=== PATIENT | male | born 1990 | race African-American/Black ===

== ENCOUNTER 2016-11-06 20:06 | Emergency (ER) | payer OTHER ==
[2016-11-06] MEDS ORDERED: NORCO, ANEXSIA 5/325MG TABLET (HYDROcodone/ACETAMINOPHEN) As Ordered ONE (21:09)
[2016-11-06] MEDS ORDERED: LIDOCAINE 2% MDV 20 ML VIAL As Ordered ONE (21:36)
[2016-11-06] MEDS ORDERED: CEPHALEXIN 250 MG CAP As Ordered ONE (21:36)
--- NOTE | 2016-11-06 23:20 | EDDOCDS ---
Physician Documentation [facility] Name: Leny Thakur Age: 26 yrs Sex: Male : 1990 Arrival Date: 11/06/2016 Time: 20:06 Bed TR8 Private MD: Other - Complete Info On Cds Disposition: 11/06/16 23:03 Discharged to Home/Self Care. Impression: Dislocation of proximal interphalangeal joint of right little finger, Open wound of other finger without damage to nail. - Condition is Stable. - Discharge Instructions: Finger Dislocation, Laceration Care, Adult. - Prescriptions for Keflex 500 mg Oral Capsule - take 1 capsule by ORAL route every 6 hours for 10 days; 40 capsule. [place] 5- 325 mg Oral Tablet - take 1 tablet by ORAL route every [address] OBANDO MDD: 4 tabs; 20 tablet. - Medication Reconciliation, Local Pharmacy Hours form. - Follow up: [facility]; When: 2 - 3 days; Reason: Recheck today's complaints, Continuance of care. Follow up: Emergency Department; When: 1 week; Reason: Staple/Suture removal. - Problem is new. - Symptoms have improved. - Notes: USE MEDICATIONS INSTRUCTED, FOLLOW UP WITH [facility], RETURN TO THE ER IF THE SYMPTOMS WORSEN OR BECOME CONCERNING Historical: - Allergies: no known allergies; - Home Meds: 1. none - PMHx: none; - PSHx: none; - Social history: Smoking status: Patient states former smoker of tobacco. No barriers to communication noted, The patient speaks fluent [place]. - Family history: Not pertinent. - : The pt / caregiver states he / she is not on anticoagulants. Home medication list is obtained from the patient. - Exposure Risk Screening:: None identified. Vital Signs: 11/06 20:08 BP 121 / 77; Pulse 88; Resp 18 S; Temp 97.9(O); Pulse Ox 97% on R/A; Weight 89.81 kg / gr2 198 lbs (R); Height 5 ft. 8 in. (172.72 cm) (R); Pain 8/10; 20:08 Body Mass Index 30.11 (89.81 kg, 172.72 cm) gr2 Procedures: 22:23 Joint Reduction: of the PIP of right little finger, using traction, Immobilized with ck7 finger splint, Patient tolerated well. Post reduction film - reveals normal alignment. 22:23 Laceration repair:. ck7 Laceration: 22:23 Wound Repair of 0.5cm ( 0.2in ) full thickness laceration to palmar aspect of proximal ck7 phalanx of right little finger. Linear shaped.. Distal neuro/vascular/tendon intact. Anesthesia: Digital block administered with 2 mls of 2% lidocaine. Wound prep: Extensive cleansing with hibiclenz by provider, Wound explored extensively. Skin closed with 2 x 4-0 Nylon using Running sutures. Dressed with bandaid. Patient tolerated well. MDM: 21:05 Financial registration complete. kf3 21:07 HYDROcodone-acetaminophen 5 mg-325 mg 1 tabs PO once ordered. ck7 21:09 Fingers Ordered. EDMS 21:32 Cephalexin 500 mg PO once ordered. ck7 21:32 Lidocaine 20 mg/mL (2 %) 10 ml Infiltration once; to bedside ordered. ck7 22:23 Fingers Ordered. EDMS Administered Medications: 21:11 Drug: HYDROcodone-acetaminophen 1 tabs [hydrocodone 5 mg-acetaminophen 325 mg tablet (1 cz tabs)] Route: PO; 21:39 Drug: Cephalexin 500 mg [cephalexin 250 mg capsule (2 caps)] Route: PO; cz 21:58 Drug: Lidocaine 10 ml [lidocaine 20 mg/mL (2 %) injection solution (10 mL)] {Note: [facility] medication obtained for provider to administer.} Route: Infiltration; Signatures: Dispatcher [employer] EDMS Ryan Cole RN RN cz Neto Saunders, Reg Reg kf3 Pat Whitehead RN RN rs3 Ean Davis, RPA-C RPA-Cck7 Windy Ayala RN [facility] MTDD
--- NOTE | 2016-11-06 23:20 | EDDOCDS ---
Nurse's Notes [facility] Name: Leny Thakur Age: 26 yrs Sex: Male : 1990 Arrival Date: 11/06/2016 Time: 20:06 Bed TR8 Private MD: Jacinta - Complete Info On Cds Diagnosis: Dislocation of proximal interphalangeal joint of right little finger;Open wound of other finger without damage to nail Presentation: 11/06 20:17 Presenting complaint: Patient states: Right 5 th finger injury playing foot ball. rs3 deformity and laceration to finger. Adult Sepsis Screening: The patient does not have new or worsening altered mentation. Patient's respiratory rate is less than 22. Systolic blood pressure is greater than 100. Patient has a qSOFA score of 0- Negative Sepsis Screen. Suicide/Homicide risk assessment- the patient denies having any suicidal and/or homicidal ideations and does not present with any other emotional, behavioral or mental health complaints. 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 Transition of care: patient was not received from another setting of care. 20:17 Acuity: KAT Level 4 rs3 20:17 Method Of Arrival: Walkin/Carried/Asstd rs3 Triage Assessment: 20:19 General: Appears in no apparent distress. Pain: Location: palmar aspect of distal rs3 phalanx of right little finger, palmar aspect of middle phalanx of right little finger and palmar aspect of proximal phalanx of right little finger. HIV screening NA for this visit Offered previously. Musculoskeletal: Reports Pain is 6 out of 10 on a pain scale. Historical: - Allergies: no known allergies; - Home Meds: 1. none - PMHx: none; - PSHx: none; - Social history: Smoking status: Patient states former smoker of tobacco. No barriers to communication noted, The patient speaks fluent Japanese. - Family history: Not pertinent. - : The pt / caregiver states he / she is not on anticoagulants. Home medication list is obtained from the patient. - Exposure Risk Screening:: None identified. Screenin:12 Screening information is obtained from the patient. Fall risk: No risks identified. cz Assistance ADL's: requires no assistance with activities of daily living. Abuse/DV Screen: The patient / caregiver reports he/she is: not in a situation that causes fear, pain or injury. Nutritional screening: No deficits noted. Advance Directives: Currently, there is no health care proxy. There is no active DNR order. There is no living will. There is no Power of Fish Straightener. Advance directive information has not previously been placed in an [facility] medical record. home support is adequate. Assessment: 21:12 General: alert male with pain to 5th digit right hand laceration to base ofdigit. cz Vital Signs: 20:08 BP 121 / 77; Pulse 88; Resp 18 S; Temp 97.9(O); Pulse Ox 97% on R/A; Weight 89.81 kg gr2 (R); Height 5 ft. 8 in. (172.72 cm) (R); Pain 8/10; 20:08 Body Mass Index 30.11 (89.81 kg, 172.72 cm) gr2 Vitals: 20:08 Log In Time: November 06, 2016 at 20:08. gr2 ED Course: 20:07 Patient visited by Rhonda Wilson. gr2 20:07 Other - Complete Info On Cds is Private Physician. gr2 20:07 Patient moved to Waiting gr2 20:09 Patient visited by Rhonda Wilson. gr2 20:09 Patient moved to Pre RCE gr2 20:19 Triage Initiated rs3 20:20 Patient moved to Triage 3 rs3 20:54 Mar[facility] ef1 20:54 Oniel Cardona DO is Attending Physician. ef1 20:57 Patient name changed from Dondrell\S\M\S\Blaze\S\ to Dondrell\S\[place]\S\Blaze. EDMS 20:57 Ean Davis RPA-C [facility]. ck7 20:57 Oniel Cardona DO is Attending Physician. ck7 21:04 Patient visited by Ean Davis RPA-C. ck7 21:12 Patient moved to TR1 rs6 21:12 The patient / caregiver is instructed regarding the plan of care and ED course. cz 21:12 No IV's were initiated during this patient's visit. No procedures done that require cz assistance. 21:33 Patient moved to PR2 / rs6 21:36 Patient visited by Ean Davis RPA-C. ck7 22:21 Patient visited by Ean Davis RPA-C. ck7 22:53 Patient visited by Ean Davis RPA-C. ck7 23:02 [facility] is Referral Physician. ck7 23:15 Patient moved to [facility] cz Administered Medications: 21:11 Drug: HYDROcodone-acetaminophen 1 tabs [hydrocodone 5 mg-acetaminophen 325 mg tablet (1 cz tabs)] Route: PO; 21:39 Drug: Cephalexin 500 mg [cephalexin 250 mg capsule (2 caps)] Route: PO; cz 21:58 Drug: Lidocaine 10 ml [lidocaine 20 mg/mL (2 %) injection solution (10 mL)] {Note: [facility] medication obtained for provider to administer.} Route: Infiltration; Order Results: There are currently no results for this order. Outcome: 23:03 Discharge ordered by Provider. ck7 23:17 Discharge Assessment: Patient awake, alert and oriented x 3. No cognitive and/or cz functional deficits noted. Patient verbalized understanding of disposition instructions. patient administered narcotics - yes. Pt provided with safe discharge. The following High Risk Discharge criteria are identified: None. Discharged to home ambulatory. Condition: stable. Discharge instructions given to patient, Instructed on discharge instructions, follow up and referral plans. medication usage, Demonstrated understanding of instructions, medications, Pt was receptive of discharge instructions/ teaching. Prescriptions given X 2. No special radiology studies were completed. Property :Personal belongings accompany Pt. 23:19 Patient left the ED. Signatures: Dispatcher [employer] EDMS Ryan Cole RN RN cz Feola, Erica, PA-C PA-C ef1 Pat Whitehead RN RN rs3 Windy Ayala RN RN [facility] Ean Davis RPA-C RPA-Cck7 Rhonda Wilson gr2 Bev Streeter, MARILEE CERTIFIED PROSTHETIST/ORTHOTIST rs6 MTDD
--- NOTE | 2016-11-07 07:40 | REP ---
EXAMINATION OF THE RIGHT FINGERS: At the proximal IP joint of the fifth finger is complete dorsal subluxation or dislocation. Remaining osseous structures visualized are essentially unremarkable. There is no well defined associated fracture. IMPRESSION: Dislocation at the proximal IP joint of the right fifth finger. The dislocation is dorsal. No associated fracture. Unreviewed
--- NOTE | 2016-11-07 07:51 | REP ---
Clinical: Status post reduction. Technique: AP, lateral, oblique views of the right fifth digit. Findings: Satisfactory reduction at the fifth proximal interphalangeal joint and splinting. No obvious acute fracture. Impression: Satisfactory reduction. Liver is Signed by Samson Denson MD 11/07/2016 07:42 A
--- NOTE | 2016-11-09 00:19 | EDDOCDS ---
Nurse's Notes [facility] Name: Leny Thakur Age: 26 yrs Sex: Male : 1990 Arrival Date: 11/06/2016 Time: 20:06 Bed TR8 Private MD: Jacinta - Complete Info On Cds Diagnosis: Dislocation of proximal interphalangeal joint of right little finger;Open wound of other finger without damage to nail Presentation: 11/06 20:17 Presenting complaint: Patient states: Right 5 th finger injury playing foot ball. rs3 deformity and laceration to finger. Adult Sepsis Screening: The patient does not have new or worsening altered mentation. Patient's respiratory rate is less than 22. Systolic blood pressure is greater than 100. Patient has a qSOFA score of 0- Negative Sepsis Screen. Suicide/Homicide risk assessment- the patient denies having any suicidal and/or homicidal ideations and does not present with any other emotional, behavioral or mental health complaints. 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 Transition of care: patient was not received from another setting of care. 20:17 Acuity: KAT Level 4 rs3 20:17 Method Of Arrival: Walkin/Carried/Asstd rs3 Triage Assessment: 20:19 General: Appears in no apparent distress. Pain: Location: palmar aspect of distal rs3 phalanx of right little finger, palmar aspect of middle phalanx of right little finger and palmar aspect of proximal phalanx of right little finger. HIV screening NA for this visit Offered previously. Musculoskeletal: Reports Pain is 6 out of 10 on a pain scale. Historical: - Allergies: no known allergies; - Home Meds: 1. none - PMHx: none; - PSHx: none; - Social history: Smoking status: Patient states former smoker of tobacco. No barriers to communication noted, The patient speaks fluent Thai. - Family history: Not pertinent. - : The pt / caregiver states he / she is not on anticoagulants. Home medication list is obtained from the patient. - Exposure Risk Screening:: None identified. Screenin:12 Screening information is obtained from the patient. Fall risk: No risks identified. cz Assistance ADL's: requires no assistance with activities of daily living. Abuse/DV Screen: The patient / caregiver reports he/she is: not in a situation that causes fear, pain or injury. Nutritional screening: No deficits noted. Advance Directives: Currently, there is no health care proxy. There is no active DNR order. There is no living will. There is no Power of Energy Economist. Advance directive information has not previously been placed in an [facility] medical record. home support is adequate. Assessment: 21:12 General: alert male with pain to 5th digit right hand laceration to base ofdigit. cz Vital Signs: 20:08 BP 121 / 77; Pulse 88; Resp 18 S; Temp 97.9(O); Pulse Ox 97% on R/A; Weight 89.81 kg gr2 (R); Height 5 ft. 8 in. (172.72 cm) (R); Pain 8/10; 20:08 Body Mass Index 30.11 (89.81 kg, 172.72 cm) gr2 Vitals: 20:08 Log In Time: November 06, 2016 at 20:08. gr2 ED Course: 20:07 Patient visited by Rhonda Wilson. gr2 20:07 Other - Complete Info On Cds is Private Physician. gr2 20:07 Patient moved to Waiting gr2 20:09 Patient visited by Rhonda Wilson. gr2 20:09 Patient moved to Pre RCE gr2 20:19 Triage Initiated rs3 20:20 Patient moved to Triage 3 rs3 20:54 Marva L[facility]pez [facility]C [facility] ef1 20:54 Oniel Cardona DO is Attending Physician. ef1 20:57 Patient name changed from Dondrell\S\M\S\Blaze\S\ to Dondrell\S\[place]\S\Blaze. EDMS 20:57 Ean Davis RPA-C is [facility]. ck7 20:57 Oniel Cardona DO is Attending Physician. ck7 21:04 Patient visited by Ean Davis RPA-C. ck7 21:12 Patient moved to TR1 rs6 21:12 The patient / caregiver is instructed regarding the plan of care and ED course. cz 21:12 No IV's were initiated during this patient's visit. No procedures done that require cz assistance. 21:33 Patient moved to PR2 / rs6 21:36 Patient visited by Ean Davis RPA-C. ck7 22:21 Patient visited by Ean Davis RPA-C. ck7 22:53 Patient visited by Ean Davis RPA-C. ck7 23:02 [facility] is Referral Physician. ck7 23:15 Patient moved to 8 cz 23:31 [facility] Payment Agreement was scanned into [employer] and attached to record. hs2 11/07 08:10 Fingers Returned. EDMS 08:10 Fingers Returned. EDMS 17:28 T-Sheet-- Draft Copy was scanned into [employer] and attached to record. klr Administered Medications: 11/06 21:11 Drug: HYDROcodone-acetaminophen 1 tabs [hydrocodone 5 mg-acetaminophen 325 mg tablet (1 cz tabs)] Route: PO; 21:39 Drug: Cephalexin 500 mg [cephalexin 250 mg capsule (2 caps)] Route: PO; cz 21:58 Drug: Lidocaine 10 ml [lidocaine 20 mg/mL (2 %) injection solution (10 mL)] {Note: [facility] medication obtained for provider to administer.} Route: Infiltration; Order Results: Radiology Order: Fingers Test: Fingers REASON FOR EXAMINATION: Deformity/Swelling; EXAMINATION OF THE RIGHT FINGERS:; ; At the proximal IP joint of the fifth finger is complete dorsal subluxation or; dislocation.; ; Remaining osseous structures visualized are essentially unremarkable. There is; no well defined associated fracture.; ; IMPRESSION:; Dislocation at the proximal IP joint of the right fifth finger. The dislocation; is dorsal. No associated fracture.; ; ; ; Unreviewed; Radiology Order: Fingers Test: Fingers REASON FOR EXAMINATION: POST REDUCTION; Clinical: Status post reduction.; ; Technique: AP, lateral, oblique views of the right fifth digit.; ; Findings:; Satisfactory reduction at the fifth proximal interphalangeal joint and splinting.; No obvious acute fracture.; ; Impression:; Satisfactory reduction. Liver is; ; ; Signed by; Samson Denson MD 11/07/2016 07:42 A; Outcome: 23:03 Discharge ordered by Provider. ck7 23:17 Discharge Assessment: Patient awake, alert and oriented x 3. No cognitive and/or cz functional deficits noted. Patient verbalized understanding of disposition instructions. patient administered narcotics - yes. Pt provided with safe discharge. The following High Risk Discharge criteria are identified: None. Discharged to home ambulatory. Condition: stable. Discharge instructions given to patient, Instructed on discharge instructions, follow up and referral plans. medication usage, Demonstrated understanding of instructions, medications, Pt was receptive of discharge instructions/ teaching. Prescriptions given X 2. No special radiology studies were completed. Property :Personal belongings accompany Pt. 23:19 Patient left the ED. cz Signatures: Dispatcher [employer] EDMS Ryan Cole, RN RN cz Marva López, PA-C PA-C ef1 Pat Whitehead RN RN rs3 Windy AyalaRN RN [facility] Ean Davis, RPA-C RPA-Cck7 Rhonda Wilson gr2 Bev Streeter, CHANGE RELEASE MANAGER CHANGE RELEASE MANAGER rs6 Bree Sánchez, Reg Reg hs2 Rica Ocasio Chart Complete MTDD
--- NOTE | 2016-11-09 00:19 | EDDOCDS ---
Physician Documentation [facility] Name: Leny Thakur Age: 26 yrs Sex: Male : 1990 Arrival Date: 11/06/2016 Time: 20:06 Bed TR8 Private MD: Other - Complete Info On Cds Disposition: 11/06/16 23:03 Discharged to Home/Self Care. Impression: Dislocation of proximal interphalangeal joint of right little finger, Open wound of other finger without damage to nail. - Condition is Stable. - Discharge Instructions: Finger Dislocation, Laceration Care, Adult. - Prescriptions for Keflex 500 mg Oral Capsule - take 1 capsule by ORAL route every 6 hours for 10 days; 40 capsule. [place] 5- 325 mg Oral Tablet - take 1 tablet by ORAL route every [address] OBANDO MDD: 4 tabs; 20 tablet. - Medication Reconciliation, Local Pharmacy Hours form. - Follow up: [facility]; When: 2 - 3 days; Reason: Recheck today's complaints, Continuance of care. Follow up: Emergency Department; When: 1 week; Reason: Staple/Suture removal. - Problem is new. - Symptoms have improved. - Notes: USE MEDICATIONS INSTRUCTED, FOLLOW UP WITH [facility], RETURN TO THE ER IF THE SYMPTOMS WORSEN OR BECOME CONCERNING Historical: - Allergies: no known allergies; - Home Meds: 1. none - PMHx: none; - PSHx: none; - Social history: Smoking status: Patient states former smoker of tobacco. No barriers to communication noted, The patient speaks fluent [place]raini. - Family history: Not pertinent. - : The pt / caregiver states he / she is not on anticoagulants. Home medication list is obtained from the patient. - Exposure Risk Screening:: None identified. Vital Signs: 11/06 20:08 BP 121 / 77; Pulse 88; Resp 18 S; Temp 97.9(O); Pulse Ox 97% on R/A; Weight 89.81 kg / gr2 198 lbs (R); Height 5 ft. 8 in. (172.72 cm) (R); Pain 8/10; 20:08 Body Mass Index 30.11 (89.81 kg, 172.72 cm) gr2 Procedures: 22:23 Joint Reduction: of the PIP of right little finger, using traction, Immobilized with ck7 finger splint, Patient tolerated well. Post reduction film - reveals normal alignment. 22:23 Laceration repair:. ck7 Laceration: 22:23 Wound Repair of 0.5cm ( 0.2in ) full thickness laceration to palmar aspect of proximal ck7 phalanx of right little finger. Linear shaped.. Distal neuro/vascular/tendon intact. Anesthesia: Digital block administered with 2 mls of 2% lidocaine. Wound prep: Extensive cleansing with hibiclenz by provider, Wound explored extensively. Skin closed with 2 x 4-0 Nylon using Running sutures. Dressed with bandaid. Patient tolerated well. MDM: 21:05 Financial registration complete. kf3 21:07 HYDROcodone-acetaminophen 5 mg-325 mg 1 tabs PO once ordered. ck7 21:09 Fingers Ordered. EDMS 21:32 Cephalexin 500 mg PO once ordered. ck7 21:32 Lidocaine 20 mg/mL (2 %) 10 ml Infiltration once; to bedside ordered. ck7 22:23 Fingers Ordered. EDMS 23:31 [facility] Payment Agreement was scanned into [employer] and attached to record. 2 11/07 17:28 T-Sheet-- Draft Copy was scanned into [employer] and attached to record. klr Administered Medications: 11/06 21:11 Drug: HYDROcodone-acetaminophen 1 tabs [hydrocodone 5 mg-acetaminophen 325 mg tablet (1 cz tabs)] Route: PO; 21:39 Drug: Cephalexin 500 mg [cephalexin 250 mg capsule (2 caps)] Route: PO; cz 21:58 Drug: Lidocaine 10 ml [lidocaine 20 mg/mL (2 %) injection solution (10 mL)] {Note: [facility] medication obtained for provider to administer.} Route: Infiltration; Signatures: Dispatcher [employer] EDMS Ryan Cole RN RN cz Neto Saunders, Reg Reg kf3 Pat Whitehead RN RN rs3 Ean Davis RPA-C RPA-Cck7 Bree Sánchez, Reg Reg hs2 Rica Ocasio klWindy Thakur RN [facility] The chart was reviewed and I authenticate all verbal orders and agree with the evaluation and treatment provided.Attachments: 23:31 [facility] Payment Agreement 2 11/07 17:28 T-Sheet-- Draft Copy klr Chart Complete MTDD
--- NOTE | 2016-11-09 00:19 | EDDOCDS ---
Physician Documentation [facility] Name: Leny Thakur Age: 26 yrs Sex: Male : 1990 Arrival Date: 11/06/2016 Time: 20:06 Bed TR8 Private MD: Other - Complete Info On Cds Disposition: 11/06/16 23:03 Discharged to Home/Self Care. Impression: Dislocation of proximal interphalangeal joint of right little finger, Open wound of other finger without damage to nail. - Condition is Stable. - Discharge Instructions: Finger Dislocation, Laceration Care, Adult. - Prescriptions for Keflex 500 mg Oral Capsule - take 1 capsule by ORAL route every 6 hours for 10 days; 40 capsule. [place] 5- 325 mg Oral Tablet - take 1 tablet by ORAL route every [address] OBANDO MDD: 4 tabs; 20 tablet. - Medication Reconciliation, Local Pharmacy Hours form. - Follow up: [facility]; When: 2 - 3 days; Reason: Recheck today's complaints, Continuance of care. Follow up: Emergency Department; When: 1 week; Reason: Staple/Suture removal. - Problem is new. - Symptoms have improved. - Notes: USE MEDICATIONS INSTRUCTED, FOLLOW UP WITH [facility], RETURN TO THE ER IF THE SYMPTOMS WORSEN OR BECOME CONCERNING Historical: - Allergies: no known allergies; - Home Meds: 1. none - PMHx: none; - PSHx: none; - Social history: Smoking status: Patient states former smoker of tobacco. No barriers to communication noted, The patient speaks fluent Faroese. - Family history: Not pertinent. - : The pt / caregiver states he / she is not on anticoagulants. Home medication list is obtained from the patient. - Exposure Risk Screening:: None identified. Vital Signs: 11/06 20:08 BP 121 / 77; Pulse 88; Resp 18 S; Temp 97.9(O); Pulse Ox 97% on R/A; Weight 89.81 kg / gr2 198 lbs (R); Height 5 ft. 8 in. (172.72 cm) (R); Pain 8/10; 20:08 Body Mass Index 30.11 (89.81 kg, 172.72 cm) gr2 Procedures: 22:23 Joint Reduction: of the PIP of right little finger, using traction, Immobilized with ck7 finger splint, Patient tolerated well. Post reduction film - reveals normal alignment. 22:23 Laceration repair:. ck7 Laceration: 22:23 Wound Repair of 0.5cm ( 0.2in ) full thickness laceration to palmar aspect of proximal ck7 phalanx of right little finger. Linear shaped.. Distal neuro/vascular/tendon intact. Anesthesia: Digital block administered with 2 mls of 2% lidocaine. Wound prep: Extensive cleansing with hibiclenz by provider, Wound explored extensively. Skin closed with 2 x 4-0 Nylon using Running sutures. Dressed with bandaid. Patient tolerated well. MDM: 21:05 Financial registration complete. kf3 21:07 HYDROcodone-acetaminophen 5 mg-325 mg 1 tabs PO once ordered. ck7 21:09 Fingers Ordered. EDMS 21:32 Cephalexin 500 mg PO once ordered. ck7 21:32 Lidocaine 20 mg/mL (2 %) 10 ml Infiltration once; to bedside ordered. ck7 22:23 Fingers Ordered. EDMS 23:31 [facility] Payment Agreement was scanned into [employer] and attached to record. 2 11/07 17:28 T-Sheet-- Draft Copy was scanned into [employer] and attached to record. klr Administered Medications: 11/06 21:11 Drug: HYDROcodone-acetaminophen 1 tabs [hydrocodone 5 mg-acetaminophen 325 mg tablet (1 cz tabs)] Route: PO; 21:39 Drug: Cephalexin 500 mg [cephalexin 250 mg capsule (2 caps)] Route: PO; cz 21:58 Drug: Lidocaine 10 ml [lidocaine 20 mg/mL (2 %) injection solution (10 mL)] {Note: [facility] medication obtained for provider to administer.} Route: Infiltration; Signatures: Dispatcher [employer] EDMS Ryan Cole RN RN cz Neto Saunders, Reg Reg kf3 Pat Whitehead RN RN rs3 Ean Davis RPA-C RPA-[id number] Bree Sánchez, Reg Reg hs2 Rica Ocaiso klWindy Thakur RN [facility] The chart was reviewed and I authenticate all verbal orders and agree with the evaluation and treatment provided.Attachments: 23:31 [facility] Payment Agreement 2 11/07 17:28 T-Sheet-- Draft Copy klr Chart Complete MTDD
== END 2016-11-06 23:19 | disposition home or self-care (01) ==
LOC: M ED 20:06
DX: S63.286A Dislocation of proximal interphalangeal joint of right little finger, initial encounter (principal); S61.216A Laceration without foreign body of right little finger without damage to nail, initial encounter; X58.XXXA Exposure to other specified factors, initial encounter; Y92.830 Public park as the place of occurrence of the external cause; Y93.67 Activity, basketball; Y99.8 Other external cause status; Z87.891 Personal history of nicotine dependence

== ENCOUNTER 2016-11-11 06:34 | Emergency (ER) | payer OTHER ==
[2016-11-11] MEDS ORDERED: diphenhydrAMINE INJ 50MG/ML VIAL (J1200) IV STA (07:10)
[2016-11-11] MEDS ORDERED: methylPREDNISolone INJ 125 MG/2 ML VIAL (J2930) IV ONE (07:15)
[2016-11-11] MEDS ORDERED: FAMOTIDINE INJ 20MG/2ML VIAL (S0028) IVP ONE (07:15)
[2016-11-11] MEDS ORDERED: NORC5TAB PO (08:10)
[2016-11-11] MEDS ORDERED: BENA25TA9 PO (08:51)
[2016-11-11] MEDS ORDERED: PRED20TA PO (08:55)
[2016-11-11] MEDS ORDERED: PEPC1TAB4 PO (08:58)
[2016-11-11 09:24] VITALS: BP 125/81
== END 2016-11-11 09:27 | disposition home or self-care (01) ==
LOC: M ED 06:34
DX: T78.40XA Allergy, unspecified, initial encounter (principal); X58.XXXA Exposure to other specified factors, initial encounter; Y92.9 Unspecified place or not applicable; Y93.9 Activity, unspecified; Y99.9 Unspecified external cause status
CPT/HCPCS: 96374; 96375; 99282; J1200; J2930

== ENCOUNTER 2017-02-22 19:48 | Emergency (ER) | payer OTHER ==
[~2017-02-22] VITALS: Ht 170.2 cm; Wt 87.1 kg
[~2017-02-22 19:48] MED LIST: BENA25TA9 PO; NORC1TAB4 PO; PEPC1TAB4 PO; PRED20TA PO
[2017-02-22 20:29] LABS: BASO # 0.1 K/mm3 (0.0-0.2); BASO % 0.8 % (0.0-1.0); EOS # 0.2 K/mm3 (0.0-0.50); LARGE UNSTAINED CELL # 0.2 K/mm3 (0.0-0.4); LARGE UNSTAINED CELL % 2.1 % (0.0-4.0); LYMPH # 2.8 K/mm3 (1.5-6.5); LYMPH % 34.3 % (24.0-44.0); MEAN CORPUSCULAR HEMOGLOBIN 29.3 pg (27.0-33.0); MEAN CORPUSCULAR HGB CONC 34.2 g/dl (32.0-36.5); MEAN CORPUSCULAR VOLUME 85.5 fl (80.0-96.0); MONO # 0.4 K/mm3 (0.0-0.8); MONO % 5.7 % (0.0-5.0); NEUTROPHILS # 4.2 K/mm3 (1.8-7.7); NEUTROPHILS % 54.2 % (36.0-66.0); PLATELET COUNT, AUTOMATED 261 k/mm3 (150-450); RED CELL DISTRIBUTION WIDTH 13.6 % (11.5-14.5); WHITE BLOOD COUNT 7.7 K/mm3 (4.0-10.0)
[2017-02-22 20:56] LABS: ALBUMIN 3.4 GM/DL (3.2-5.2); ALBUMIN/GLOBULIN RATIO 0.89 (1.00-1.93); ALKALINE PHOSPHATASE 75 U/L (45-117); ALT/SGPT 27 U/L (12-78); ANION GAP 7 MEQ/L (8-16); AST/SGOT 22 U/L (15-37); BILIRUBIN,DIRECT < 0.1 MG/DL (0.0-0.2); BILIRUBIN,TOTAL 0.2 MG/DL (0.2-1.0); BLOOD UREA NITROGEN 15 MG/DL (7-18); CALCIUM LEVEL 8.6 MG/DL (8.5-10.1); CARBON DIOXIDE LEVEL 28 MEQ/L (21-32); CHLORIDE LEVEL 105 MEQ/L (98-107); CREATININE FOR GFR 1.14 MG/DL (0.70-1.30); GLOMERULAR FILTRATION RATE > 60.0 (>60); GLUCOSE, FASTING 152 MG/DL (70-105); POTASSIUM SERUM 3.4 MEQ/L (3.5-5.1); SODIUM LEVEL 140 MEQ/L (136-145); TOTAL PROTEIN 7.2 GM/DL (6.4-8.2)
--- NOTE | 2017-02-22 21:00 | REPUSA ---
CLINICAL HISTORY: Chest pain. COMMENTS: PA and lateral views of chest reveal no evidence of active pleural or pulmonary parenchymal abnormali ty. The cardiac silhouette is within limits of normal. The mediastinum and pulmonary vessels appear n ormal. The bony structures are unremarkable. IMPRESSION: No evidence of acute pulmonary pathology.
[2017-02-22] MEDS ORDERED: POTASSIUM CHLORIDE 10 MEQ SR TABLET PO ONE (21:30)
[2017-02-23 00:26] VITALS: BP 117/63
--- NOTE | 2017-02-23 08:19 | ECGEPIP ---
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
--- NOTE | 2017-02-23 08:23 | ECGEPIP ---
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
== END 2017-02-23 00:22 | disposition home or self-care (01) ==
LOC: M ED 21:35
DX: R07.9 Chest pain, unspecified (principal); F17.200 Nicotine dependence, unspecified, uncomplicated

== ENCOUNTER 2017-02-25 18:05 | Emergency (ER) | payer OTHER ==
[~2017-02-25] VITALS: Ht 170.2 cm; Wt 87.5 kg
[2017-02-25] MEDS ORDERED: INDO25CA PO (20:17)
[2017-02-25 20:25] VITALS: BP 128/72
--- NOTE | 2017-02-26 09:27 | ECGEPIP ---
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
== END 2017-02-25 20:27 | disposition home or self-care (01) ==
LOC: M ED 19:16
DX: R07.89 Other chest pain (principal); R00.1 Bradycardia, unspecified

== ENCOUNTER 2017-02-25 23:56 | Emergency (ER) | payer OTHER ==
[~2017-02-25] VITALS: Ht 170.2 cm; Wt 87.2 kg
[~2017-02-25 23:56] MED LIST changes: +INDO25CA PO
[2017-02-26 03:55] VITALS: BP 133/84
--- NOTE | 2017-02-26 09:30 | ECGEPIP ---
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
== END 2017-02-26 04:08 | disposition home or self-care (01) ==
LOC: M ED 02-26 00:27
DX: F41.9 Anxiety disorder, unspecified (principal); F17.200 Nicotine dependence, unspecified, uncomplicated

== ENCOUNTER 2017-03-03 06:14 | Emergency (ER) | payer OTHER ==
[~2017-03-03] VITALS: Ht 170.2 cm; Wt 87.0 kg
[~2017-03-03 06:14] MED LIST changes: +BENA25TA10 PO; -BENA25TA9 PO
[2017-03-03] MEDS ORDERED: FAMOTIDINE IV BAG 20 MG in APPROPRIATE DILUENT 1 EA IV ONE (07:00)
[2017-03-03] MEDS ORDERED: GI COCKTAIL 50ML BTL(HYOSCYAMINE/MAALOX/LIDOCAINE VISCOUS)(1:3:1) PO ONE (07:00)
[2017-03-03 07:04] LABS: BASO % 0.4 % (0.0-1.0); EOS # 0.3 K/mm3 (0.0-0.50); LARGE UNSTAINED CELL # 0.2 K/mm3 (0.0-0.4); LARGE UNSTAINED CELL % 1.9 % (0.0-4.0); LYMPH # 3.6 K/mm3 (1.5-6.5); LYMPH % 34.2 % (24.0-44.0); MEAN CORPUSCULAR HEMOGLOBIN 28.8 pg (27.0-33.0); MEAN CORPUSCULAR HGB CONC 33.6 g/dl (32.0-36.5); MEAN CORPUSCULAR VOLUME 85.7 fl (80.0-96.0); MONO # 0.6 K/mm3 (0.0-0.8); MONO % 5.8 % (0.0-5.0); NEUTROPHILS # 5.5 K/mm3 (1.8-7.7); NEUTROPHILS % 54.6 % (36.0-66.0); PLATELET COUNT, AUTOMATED 269 k/mm3 (150-450); RED CELL DISTRIBUTION WIDTH 13.5 % (11.5-14.5); WHITE BLOOD COUNT 10.1 K/mm3 (4.0-10.0)
[2017-03-03 07:20] LABS: ALBUMIN/GLOBULIN RATIO 1.11 (1.00-1.93); ALKALINE PHOSPHATASE 79 U/L (45-117); ALT/SGPT 25 U/L (12-78); AMYLASE 105 U/L (25-115); ANION GAP 7 MEQ/L (8-16); AST/SGOT 18 U/L (15-37); BILIRUBIN,DIRECT < 0.1 MG/DL (0.0-0.2); BILIRUBIN,TOTAL 0.2 MG/DL (0.2-1.0); BLOOD UREA NITROGEN 13 MG/DL (7-18); CARBON DIOXIDE LEVEL 28 MEQ/L (21-32); CHLORIDE LEVEL 104 MEQ/L (98-107); CREATININE FOR GFR 1.22 MG/DL (0.70-1.30); GLOMERULAR FILTRATION RATE > 60.0 (>60); GLUCOSE, FASTING 91 MG/DL (70-105); POTASSIUM SERUM 4.1 MEQ/L (3.5-5.1); SODIUM LEVEL 139 MEQ/L (136-145); TOTAL PROTEIN 7.6 GM/DL (6.4-8.2)
--- NOTE | 2017-03-03 07:34 | REP ---
Clinical: Acute right upper quadrant abdominal pain. Technique: Villalobos scale ultrasound using curved array transducer. Findings: The liver and pancreas are normal in contour, size, and echogenicity without focal hepatic or pancreatic lesions identified. The gallbladder is normal without gallstones, wall thickening or pericholecystic fluid. No biliary ductal dilatation is appreciated, and the common bile duct measures 2.7 mm diameter. The right kidney is normal in reniform shape without hydronephrosis and measures 10.0 x 4.4 x 4.8 cm. No ascites. Visualized portions of the abdominal aorta normal. Impression: Normal right upper quadrant and gallbladder abdominal ultrasound. Signed by Samson Denson MD 03/03/2017 07:24 A
[2017-03-03] MEDS ORDERED: PROT1TAB2 PO (07:36)
[2017-03-03] MEDS ORDERED: KETOROLAC 30 MG/ML VIAL (J1885) IV ONE (07:45)
[2017-03-03] MEDS ORDERED: PANTOPRAZOLE 40MG TAB (PROTONIX) PO ONE (07:45)
[2017-03-03 08:14] VITALS: BP 128/68
[2017-03-04] MEDS ORDERED: ELIQ5TAB PO (13:15)
== END 2017-03-03 08:19 | disposition home or self-care (01) ==
LOC: M ED 07:24
DX: K29.70 Gastritis, unspecified, without bleeding (principal); R11.0 Nausea; R10.13 Epigastric pain
CPT/HCPCS: 76705; 80048; 80076; 82150; 83690; 85025; 96374; 96375; 99283; J1885

== ENCOUNTER 2017-03-04 08:27 | Emergency (ER) | payer OTHER ==
[~2017-03-04] VITALS: Ht 170.2 cm; Wt 88.0 kg
[~2017-03-04 08:27] MED LIST changes: +PROT1TAB2 PO
[2017-03-04] MEDS ORDERED: ISOVUE-370 76% 100ML VIAL (Q9967) As Ordered ONE (09:19)
--- NOTE | 2017-03-04 10:12 | REP ---
CT of the chest, CT pulmonary angiography: Studies performed with intravenous contrast. There are no comparison CT studies. There are no emboli in the pulmonary trunk or central pulmonary arteries. I suspect there is a small embolus in the artery supplying the apical segment of the right upper lobe on image 51. No other pulmonary emboli are identified. There are no infiltrates, effusions or masses. There is no mediastinal or hilar adenopathy. No axillary adenopathy. Thoracic aorta is unremarkable. Cardiac size is normal. The visualized upper abdominal contents are unremarkable. Impression: I suspect a small embolus in the pulmonary artery supplying the apical segment of the right upper lobe. There are no other pulmonary emboli. Otherwise, negative CT study of the chest. Signed by Alfonzo Cruz MD 03/04/2017 10:03 A
[2017-03-04 10:57] LABS: ANION GAP 5 MEQ/L (8-16); BLOOD UREA NITROGEN 13 MG/DL (7-18); CALCIUM LEVEL 8.9 MG/DL (8.5-10.1); CARBON DIOXIDE LEVEL 31 MEQ/L (21-32); CHLORIDE LEVEL 103 MEQ/L (98-107); CREATININE FOR GFR 1.27 MG/DL (0.70-1.30); GLOMERULAR FILTRATION RATE > 60.0 (>60); GLUCOSE, FASTING 96 MG/DL (70-105); POTASSIUM SERUM 3.7 MEQ/L (3.5-5.1); SODIUM LEVEL 139 MEQ/L (136-145)
[2017-03-04 11:04] LABS: INR 0.96
--- NOTE | 2017-03-04 11:07 | REP ---
Bilateral lower extremity Duplex Doppler venous ultrasound: Real time compression and duplex Doppler interrogation of the bilateral lower extremity deep venous system is performed. Bilaterally, the common femoral, superficial femoral and popliteal veins are fully compressible with transducer pressure and demonstrate normal spontaneous and phasic flow, without evidence of deep venous thrombosis. Impression: No evidence of deep venous thrombosis of the bilateral lower extremity femoral popliteal venous system. Signed by Alfonzo Villalobos MD 03/04/2017 10:58 A
[2017-03-04 11:23] LABS: BASO % 0.5 % (0.0-1.0); EOS # 0.2 K/mm3 (0.0-0.50); EOS % 1.9 % (0.0-3.0); LARGE UNSTAINED CELL # 0.2 K/mm3 (0.0-0.4); LARGE UNSTAINED CELL % 2.2 % (0.0-4.0); LYMPH # 2.8 K/mm3 (1.5-6.5); LYMPH % 27.4 % (24.0-44.0); MEAN CORPUSCULAR HEMOGLOBIN 29.3 pg (27.0-33.0); MEAN CORPUSCULAR HGB CONC 34.3 g/dl (32.0-36.5); MEAN CORPUSCULAR VOLUME 85.5 fl (80.0-96.0); MONO # 0.6 K/mm3 (0.0-0.8); MONO % 6.6 % (0.0-5.0); NEUTROPHILS # 5.7 K/mm3 (1.8-7.7); NEUTROPHILS % 61.4 % (36.0-66.0); PLATELET COUNT, AUTOMATED 224 k/mm3 (150-450); RED CELL DISTRIBUTION WIDTH 13.2 % (11.5-14.5); WHITE BLOOD COUNT 9.3 K/mm3 (4.0-10.0)
[2017-03-04] MEDS ORDERED: APIXABAN 5 MG TAB (ELIQUIS) PO ONE (13:15)
[2017-03-04] MEDS ORDERED: ELIQ5TAB PO (13:15)
[2017-03-04 15:41] VITALS: BP 119/64
--- NOTE | 2017-03-04 15:57 | ER ---
DATE OF CONSULTATION: 03/04/2017 CONSULTATION REQUESTED BY: Oniel Cardona DO, emergency room (ER). REASON FOR CONSULTATION: Medical management. CHIEF COMPLAINT: Chest pain. HISTORY OF PRESENT ILLNESS: Mr. Thakur is a 26-year-old male with no past medical history who presented to the ER due to experiencing chest discomfort and pain. The patient expressed that his symptoms started a week ago when he was at home watching TV, that the sharp pain suddenly started. Patient expressed that the pain was 7/10 with no radiation and mostly located on the mid and left anterior side of the chest under the breast tissue. Patient had been seen by the ER multiple times over the past week and his last visit was yesterday when he was diagnosed with epigastric abdominal pain and was discharged with Protonix. However, patient expressed that it did not help his pain. Patient returned again today due to continuation of the pain. Patient denies fever, chills, night sweats. Patient expressed that the chest pain and discomfort increases with taking deep breaths and activities. Patient denies actively being out of breath , however patient expressed that when the pain increases he becomes short of breath, also he feels palpitations when his pain increases, however patient denies racing or skipping heartbeat or continuation of palpitations. Patient denies coughing. Patient denies seizure-type activities or syncope. Patient also denies rash or lesions or experiencing a tick bite. Patient also denies noticing an increase in the size of his testes or pain in the scrotum as well as lumps or bumps in his neck or axillary area. ALLERGIES: No known drug allergies. PAST MEDICAL HISTORY: None. PAST SURGICAL HISTORY: None. HOME MEDICATIONS: - Protonix 40 mg daily SOCIAL HISTORY: Patient expressed that at this time he has quit smoking two years ago, however before that patient smoked about a year, about two cigarettes a day. Patient occasionally drinks alcoholic beverages. Patient denies illicit drug use. Patient works for [employer]. Patient has one dog. At this time, patient lives with his and his daughter who is healthy. FAMILY HISTORY: Patient has a daughter who is healthy. Patient has four brothers and three sisters who are healthy. Patient's father and mother are alive and have no medical issues. Patient also expressed that neither he nor any of his family members have been diagnosed with sickle cell or having the sickle cell trait. REVIEW OF SYSTEMS: GENERAL: Patient denies fever, chills, night sweats, weight loss, weight gain. HEENT: Patient denies acute vision or hearing changes, however patient expressed that when he had episode of dyspnea he had one or two episodes of lightheadedness, however patient denies syncope. Patient denies problem with chewing food or sinusitis. NECK: Patient denies lumps, bumps, or decreased range of motion of his neck. HEART: Patient has chest pain which is mostly on the mid and the left lateral sternum under his left breast tissue. Patient expressed that the pain is 5-6 out of 10, stationary, sharp pain, which increases with activities and movement and taking deep breaths. Patient denies actively noticing racing or skipping heartbeat or palpitations, however patient expressed that when his pain increases he feels palpitations. LUNGS: Patient denies actively being out of breath, however increase of pain causes him to be out of breath. However patient denies cough or wheezing. ABDOMEN: Patient denies abdominal pain, nausea, vomiting, diarrhea, constipation, melena, hematochezia, or hemoptysis. NEUROLOGIC: Patient denies history of transient ischemic attack (TIA), seizure or seizure-type activities. PHYSICAL EXAMINATION: VITAL SIGNS: Temperature 98.1, pulse 89, respiratory rate 18, blood pressure 160/82, pulse oximetry 100% on room air. GENERAL APPEARANCE: Patient was lying in bed, in no acute distress. Patient was awake, alert, and oriented to time, place, and person. HEENT: Normocephalic, atraumatic. Pupils are equal and reactive to light. Oral mucous is moist. NECK: Soft, supple. No lymphadenopathy. No thyromegaly. No jugular venous distention (JVD). HEART: Regular rate and rhythm, normal S1, S2. ABDOMEN: Soft, nontender. Positive bowel sounds in all quadrants. LUNGS: Clear breath sounds bilaterally, good air movement. EXTREMITIES: No lumps or bumps were noticed in the axillary area bilaterally. No lower extremity edema. +2 pulses in both lower extremities. Patient has normal range of motion in both upper and lower extremities. NEUROLOGIC: Cranial nerves II-XII were intact. No focal deficiencies. : testis are in normal size and no mass or lumps was noticed. LABORATORY DATA: White blood cells 9.3, red blood cells 4.54, hemoglobin 13.3, hematocrit 38.8, MCV 85.5, MCH 29.3, MCHC 34.3, RDW 13.2, platelet count 224, neutrophil percentage 61.4, lymphocyte percentage 27.4, monocyte percentage 6.6, eosinophil percentage 1.9, basophil percentage 0.9, leukocyte percentage 2.2, PT 12.9, INR 0.96, APTT 28.1. Sodium 139, potassium 3.7, chloride 103, carbon dioxide 31, anion gap 5, BUN 13, creatinine 1.27, glomerular filtration rate more than 60, fasting glucose 96, calcium 8.9. IMAGING: Ultrasound of the lower extremities shows no evidence of a deep venous thrombosis (DVT) of the bilateral lower extremities femoral popliteal venous system. CT angio of the chest shows a small embolus in the pulmonary artery supplying the apical segment of the right upper lobe. There are no other pulmonary embolisms and otherwise patient has negative CT study. ASSESSMENT AND PLAN: Atypical chest pain. This is possibly secondary to pulmonary embolus (PE). Patient has been started on Eliquis by emergency room (ER), which we agree with this plan. Also, a hypercoagulable workup has been ordered and the result is pending at this time. Patient does not have a primary care provider (PCP) at this time due to his insurance ([employer]). Patient is requested to followup with the [facility]. We have tried to call the [facility] today, however no response. We provided a number for [facility] ([phone]) to the patient and requested that patient make an appointment as soon as possible for followup. Also, on the previous visit patient had an EKG done which did not show any new pathology. Patient also had cardiac markers done on previous visits (02/22/2017 ) which were negative. On the physical exam, no abnormal mass was noticed on the testes, also no lumps or bumps were noticed in the axillary area as well as neck. After DC from ER, patient's needs to followup with the primary care provider ( PCP) as soon as possible. My preceptor for this patient encounter was Dr. Luciano Watson. The preceptor was physically present in the building during the encounter and was fully available. As needed, all aspects of the patient interview, examination, medical decision making process, and medical care plan development were reviewed and approved by the preceptor. The preceptor is aware and concurs with the plan as stated in the body of this note and will attest to such by his cosignature. Attending note: I have examined this patient independently and reviewed the chart and diagnostic studies. I have had a detailed discussion with the resident regarding the plan as outlined above. All aspects of the history and physical are reflective of our discussion. ENIO
== END 2017-03-04 15:43 | disposition home or self-care (01) ==
LOC: M ED 08:58
DX: I26.99 Other pulmonary embolism without acute cor pulmonale (principal); Z79.899 Other long term (current) drug therapy
CPT/HCPCS: 36415; 71275; 80048; 81240; 81241; 84311; 85025; 85300; 85301; 85303; 85305; 85610; 85730; 86147; 93970; 99285; Q9967

== ENCOUNTER 2017-04-03 12:20 | Emergency (ER) | payer OTHER ==
[~2017-04-03 12:20] MED LIST changes: +ELIQ5TAB PO
[2017-04-03 12:56] LABS: BASO % 0.6 % (0.0-1.0); EOS # 0.3 K/mm3 (0.0-0.50); EOS % 3.9 % (0.0-3.0); LARGE UNSTAINED CELL # 0.1 K/mm3 (0.0-0.4); LARGE UNSTAINED CELL % 1.6 % (0.0-4.0); LYMPH # 2.9 K/mm3 (1.5-6.5); LYMPH % 32.9 % (24.0-44.0); MEAN CORPUSCULAR HEMOGLOBIN 29.5 pg (27.0-33.0); MEAN CORPUSCULAR HGB CONC 34.9 g/dl (32.0-36.5); MEAN CORPUSCULAR VOLUME 84.6 fl (80.0-96.0); MONO # 0.6 K/mm3 (0.0-0.8); MONO % 6.6 % (0.0-5.0); NEUTROPHILS # 4.5 K/mm3 (1.8-7.7); NEUTROPHILS % 54.4 % (36.0-66.0); PLATELET COUNT, AUTOMATED 263 k/mm3 (150-450); RED CELL DISTRIBUTION WIDTH 13.5 % (11.5-14.5); WHITE BLOOD COUNT 8.3 K/mm3 (4.0-10.0)
[2017-04-03 13:01] LABS: INR 0.96
[2017-04-03 13:26] LABS: ALBUMIN 3.9 GM/DL (3.2-5.2); ALBUMIN/GLOBULIN RATIO 0.91 (1.00-1.93); ALKALINE PHOSPHATASE 88 U/L (45-117); ALT/SGPT 33 U/L (12-78); ANION GAP 8 MEQ/L (8-16); AST/SGOT 18 U/L (15-37); BILIRUBIN,TOTAL 0.6 MG/DL (0.2-1.0); BLOOD UREA NITROGEN 11 MG/DL (7-18); CALCIUM LEVEL 9.5 MG/DL (8.5-10.1); CARBON DIOXIDE LEVEL 29 MEQ/L (21-32); CHLORIDE LEVEL 103 MEQ/L (98-107); CREATININE FOR GFR 1.16 MG/DL (0.70-1.30); GLOMERULAR FILTRATION RATE > 60.0 (>60); GLUCOSE, FASTING 80 MG/DL (70-105); POTASSIUM SERUM 3.9 MEQ/L (3.5-5.1); SODIUM LEVEL 140 MEQ/L (136-145); TOTAL PROTEIN 8.2 GM/DL (6.4-8.2)
[2017-04-03] MEDS ORDERED: ISOVUE-370 76% 100ML VIAL (Q9967) As Ordered ONE (13:31)
--- NOTE | 2017-04-03 14:16 | REP ---
CT of the chest CT pulmonary angiography with IV contrast: Comparison is 2016. There are no emboli in the pulmonary trunk or central pulmonary arteries. There are no emboli in the the pulmonary artery lobe or segment branches. There is an artifact in the pulmonary vein in the right upper lobe on image 56. This is similar to the comparison study. However, on the study today, this can be seen as an artifact in a pulmonary vein and is not in a pulmonary artery. There are no infiltrates or effusions. There are no masses or nodules. There is no mediastinal or hilar adenopathy. There is no axillary adenopathy. The thoracic aorta is unremarkable. Cardiac size is normal. The visualized upper abdominal contents are unremarkable. Impression: Negative CT study of the chest. There are no pulmonary emboli. There is an artifact in the pulmonary vein in the right upper lobe as discussed in the body of the report. Signed by Alfonzo Cruz MD 04/03/2017 02:08 P
[2017-04-03 14:59] VITALS: BP 122/68
[2017-04-04] MEDS ORDERED: NAPR500T PO (04:29)
--- NOTE | 2017-04-04 11:24 | ECGEPIP ---
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
== END 2017-04-03 15:10 | disposition home or self-care (01) ==
LOC: EDBD 12:20 → M ED 12:20
DX: R07.9 Chest pain, unspecified (principal); Z86.711 Personal history of pulmonary embolism
CPT/HCPCS: 71275; 80053; 82550; 82553; 85025; 85610; 85730; 93005; 99284; Q9967

== ENCOUNTER 2017-04-04 03:37 | Emergency (ER) | payer OTHER ==
[~2017-04-04] VITALS: Ht 170.2 cm; Wt 91.4 kg
[2017-04-04] MEDS ORDERED: NAPR500T PO (04:29)
[2017-04-04] MEDS ORDERED: KETOROLAC 60 MG/2 ML VIAL (J1885) IM ONE (04:30)
[2017-04-04 05:21] VITALS: BP 138/74
== END 2017-04-04 05:22 | disposition home or self-care (01) ==
LOC: M ED 03:37
DX: R07.89 Other chest pain (principal); Z82.49 Family history of ischemic heart disease and other diseases of the circulatory system

== ENCOUNTER 2017-04-19 18:52 | Emergency (ER) | payer OTHER ==
[~2017-04-19] VITALS: Ht 170.2 cm; Wt 90.9 kg
[~2017-04-19 18:52] MED LIST changes: +NAPR500T PO
[2017-04-19] MEDS ORDERED: KETOROLAC 30 MG/ML VIAL (J1885) IV ONE (19:30)
[2017-04-19] MEDS ORDERED: NS 1,000 ML IV ONE (19:30)
[2017-04-19 19:45] LABS: BASO % 0.5 % (0.0-1.0); EOS # 0.2 K/mm3 (0.0-0.50); EOS % 1.9 % (0.0-3.0); LARGE UNSTAINED CELL # 0.2 K/mm3 (0.0-0.4); LARGE UNSTAINED CELL % 1.9 % (0.0-4.0); LYMPH # 3.1 K/mm3 (1.5-6.5); LYMPH % 34.2 % (24.0-44.0); MEAN CORPUSCULAR HEMOGLOBIN 27.8 pg (27.0-33.0); MEAN CORPUSCULAR HGB CONC 33.2 g/dl (32.0-36.5); MEAN CORPUSCULAR VOLUME 83.6 fl (80.0-96.0); MONO # 0.6 K/mm3 (0.0-0.8); MONO % 7.2 % (0.0-5.0); NEUTROPHILS # 4.6 K/mm3 (1.8-7.7); NEUTROPHILS % 54.3 % (36.0-66.0); PLATELET COUNT, AUTOMATED 283 k/mm3 (150-450); RED CELL DISTRIBUTION WIDTH 13.6 % (11.5-14.5); WHITE BLOOD COUNT 8.5 K/mm3 (4.0-10.0)
[2017-04-19 19:53] LABS: ANION GAP 9 MEQ/L (8-16); BLOOD UREA NITROGEN 18 MG/DL (7-18); CALCIUM LEVEL 8.8 MG/DL (8.5-10.1); CARBON DIOXIDE LEVEL 27 MEQ/L (21-32); CHLORIDE LEVEL 106 MEQ/L (98-107); CREATININE FOR GFR 1.16 MG/DL (0.70-1.30); GLOMERULAR FILTRATION RATE > 60.0 (>60); GLUCOSE, FASTING 97 MG/DL (70-105); POTASSIUM SERUM 3.5 MEQ/L (3.5-5.1); SODIUM LEVEL 142 MEQ/L (136-145)
[2017-04-19 20:06] LABS: ERYTHROCYTE SEDIMENTATION RATE 12 mm/hr (0-15)
[2017-04-19 22:35] VITALS: BP 137/79
--- NOTE | 2017-04-20 05:57 | ECGEPIP ---
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
--- NOTE | 2017-04-20 07:03 | REP ---
CHEST PA AND LATERAL: 04/19/2017 COMPARISON: 02/22/2017, CT angiogram 04/03/2017 and 03/04/2017. CLINICAL HISTORY: 26-year-old male with chest pain. FINDINGS: Lungs remain adequately inflated. There is no infiltrate, effusion, atelectasis or mass. Heart, mediastinal and hilar contours are normal. Bones are intact. Airway unremarkable. No free air under the diaphragm. IMPRESSION: 1. No acute cardiopulmonary change. Stable chest from two recent CT angiograms and chest x-ray. Signed by Rl Sheffield MD 04/20/2017 08:02 A
== END 2017-04-19 22:45 | disposition home or self-care (01) ==
LOC: M ED 18:52
DX: R07.89 Other chest pain (principal); M94.0 Chondrocostal junction syndrome [Tietze]; Z87.891 Personal history of nicotine dependence; Z86.711 Personal history of pulmonary embolism; Z79.1 Long term (current) use of non-steroidal anti-inflammatories (NSAID)
CPT/HCPCS: 36415; 71020; 80048; 82550; 82553; 85025; 85379; 85652; 86140; 93005; 93041; 94760; 96374; 99285; J1885

== ENCOUNTER → 2017-04-27 | Outpatient (REF) | payer OTHER ==
[~2017-04-27] MED LIST changes: +ZITHTAB PO
== END ==
LOC: M LAB REF 16:26
PROVIDERS: ATTEND Physician Assistant
DX: R30.0 Dysuria (principal)

== ENCOUNTER 2017-06-05 17:21 | Emergency (ER) | payer OTHER ==
[~2017-06-05] VITALS: Ht 172.7 cm; Wt 90.0 kg
[~2017-06-05 17:21] MED LIST changes: -ZITHTAB PO
[2017-06-05 21:15] LABS: BASO % 0.5 % (0.0-1.0); EOS # 0.2 K/mm3 (0.0-0.50); EOS % 2.4 % (0.0-3.0); LARGE UNSTAINED CELL # 0.2 K/mm3 (0.0-0.4); LARGE UNSTAINED CELL % 1.9 % (0.0-4.0); LYMPH # 2.9 K/mm3 (1.5-6.5); LYMPH % 37.3 % (24.0-44.0); MEAN CORPUSCULAR HEMOGLOBIN 28.9 pg (27.0-33.0); MEAN CORPUSCULAR HGB CONC 34.2 g/dl (32.0-36.5); MEAN CORPUSCULAR VOLUME 84.7 fl (80.0-96.0); MONO # 0.4 K/mm3 (0.0-0.8); MONO % 5.5 % (0.0-5.0); NEUTROPHILS # 4.1 K/mm3 (1.8-7.7); NEUTROPHILS % 52.5 % (36.0-66.0); PLATELET COUNT, AUTOMATED 272 k/mm3 (150-450); RED CELL DISTRIBUTION WIDTH 13.1 % (11.5-14.5); WHITE BLOOD COUNT 7.8 K/mm3 (4.0-10.0)
[2017-06-05 21:30] LABS: ALBUMIN/GLOBULIN RATIO 0.98 (1.00-1.93); ALKALINE PHOSPHATASE 81 U/L (45-117); ALT/SGPT 26 U/L (12-78); ANION GAP 6 MEQ/L (8-16); AST/SGOT 25 U/L (15-37); BILIRUBIN,TOTAL 0.5 MG/DL (0.2-1.0); BLOOD UREA NITROGEN 11 MG/DL (7-18); CALCIUM LEVEL 8.6 MG/DL (8.5-10.1); CARBON DIOXIDE LEVEL 30 MEQ/L (21-32); CHLORIDE LEVEL 104 MEQ/L (98-107); CREATININE FOR GFR 1.19 MG/DL (0.70-1.30); GLOMERULAR FILTRATION RATE > 60.0 (>60); GLUCOSE, FASTING 90 MG/DL (70-105); POTASSIUM SERUM 3.7 MEQ/L (3.5-5.1); SODIUM LEVEL 140 MEQ/L (136-145); TOTAL PROTEIN 8.1 GM/DL (6.4-8.2)
[2017-06-05] MEDS ORDERED: ZITHTAB PO (22:19)
[2017-06-05 22:33] VITALS: BP 121/65
--- NOTE | 2017-06-07 05:48 | ECGEPIP ---
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
== END 2017-06-05 22:35 | disposition home or self-care (01) ==
LOC: M ED 17:21
DX: R05 Cough (principal); R59.9 Enlarged lymph nodes, unspecified; Z87.891 Personal history of nicotine dependence; Z79.899 Other long term (current) drug therapy

== ENCOUNTER 2017-10-06 09:02 | Emergency (ER) | payer OTHER ==
[2017-10-06 10:01] LABS: BASO # 0.1 10^3/uL (0.0-0.2); BASO % 0.4 % (0.0-1.0); EOS # 0.1 10^3/uL (0.0-0.50); EOS % 0.8 % (0.0-3.0); HEMOGLOBIN 13.3 g/dl (14.0-18.0); IMMATURE GRANULOCYTE % 0.2 % (0-0); LYMPH # 4.1 10^3/uL (1.5-6.5); LYMPH % 33.7 % (24.0-44.0); MEAN CORPUSCULAR HEMOGLOBIN 28.7 pg (27.0-33.0); MEAN CORPUSCULAR HGB CONC 34.1 g/dl (32.0-36.5); MEAN CORPUSCULAR VOLUME 84.2 fl (80.0-96.0); MONO % 8.5 % (0.0-5.0); NEUTROPHILS # 6.8 10^3/uL (1.8-7.7); NEUTROPHILS % 56.4 % (36.0-66.0); PLATELET COUNT, AUTOMATED 286 10^3/uL (150-450); RED BLOOD COUNT 4.63 10^6/uL (4.30-6.10); RED CELL DISTRIBUTION WIDTH 13.4 % (11.5-14.5); WHITE BLOOD COUNT 12.1 10^3/uL (4.0-10.0)
[2017-10-06 10:35] LABS: ALBUMIN 3.9 GM/DL (3.2-5.2); ALBUMIN/GLOBULIN RATIO 1.22 (1.00-1.93); ALKALINE PHOSPHATASE 65 U/L (45-117); ALT/SGPT 27 U/L (12-78); ANION GAP 7 MEQ/L (8-16); AST/SGOT 19 U/L (7-37); BILIRUBIN,TOTAL 0.2 MG/DL (0.2-1.0); BLOOD UREA NITROGEN 9 MG/DL (7-18); CALCIUM LEVEL 8.6 MG/DL (8.5-10.1); CARBON DIOXIDE LEVEL 26 MEQ/L (21-32); CHLORIDE LEVEL 111 MEQ/L (98-107); CREATININE FOR GFR 1.23 MG/DL (0.70-1.30); GLOMERULAR FILTRATION RATE > 60.0 (>60); GLUCOSE, FASTING 107 MG/DL (70-100); POTASSIUM SERUM 3.9 MEQ/L (3.5-5.1); SODIUM LEVEL 144 MEQ/L (136-145); TOTAL PROTEIN 7.1 GM/DL (6.4-8.2)
[2017-10-06] MEDS ORDERED: ISOVUE-370 76% 100ML VIAL (Q9967) As Ordered (10:37)
[2017-10-06] MEDS: predniSONE 20 MG TAB PO (11:57)
[2017-10-06] MEDS: AUGMENTIN 875 MG TAB PO (11:58)
== END 2017-10-06 12:05 | disposition home or self-care (01) ==
LOC: M ED 09:02
DX: J20.9 Acute bronchitis, unspecified (principal); Z86.711 Personal history of pulmonary embolism; F17.200 Nicotine dependence, unspecified, uncomplicated; Z82.49 Family history of ischemic heart disease and other diseases of the circulatory system
CPT/HCPCS: Q9967

== ENCOUNTER 2018-01-01 23:19 | Emergency (ER) | payer OTHER ==
[2018-01-02 00:13] LABS: HEMATOCRIT 39.5 % (42.0-52.0); HEMOGLOBIN 13.2 g/dl (13.5-17.5); MEAN CORPUSCULAR HEMOGLOBIN 28.1 pg (27.0-33.0); MEAN CORPUSCULAR HGB CONC 33.4 g/dl (32.0-36.5); PLATELET COUNT, AUTOMATED 272 10^3/uL (150-450); RED CELL DISTRIBUTION WIDTH 13.1 % (11.5-14.5); WHITE BLOOD COUNT 10.3 10^3/uL (4.0-10.0)
[2018-01-02 00:36] LABS: ALKALINE PHOSPHATASE 68 U/L (45-117); ALT/SGPT 46 U/L (12-78); ANION GAP 6 MEQ/L (8-16); AST/SGOT 30 U/L (7-37); BILIRUBIN,DIRECT < 0.1 MG/DL (0.0-0.2); BILIRUBIN,TOTAL 0.4 MG/DL (0.2-1.0); BLOOD UREA NITROGEN 17 MG/DL (7-18); CALCIUM LEVEL 8.8 MG/DL (8.5-10.1); CARBON DIOXIDE LEVEL 29 MEQ/L (21-32); CHLORIDE LEVEL 105 MEQ/L (98-107); CREATININE FOR GFR 1.15 MG/DL (0.70-1.30); GLOMERULAR FILTRATION RATE > 60.0 (>60); GLUCOSE, FASTING 87 MG/DL (70-100); LIPASE 180 U/L (73-393); POTASSIUM SERUM 3.8 MEQ/L (3.5-5.1); SODIUM LEVEL 140 MEQ/L (136-145)
[2018-01-02] MEDS ORDERED: METOCLOPRAMIDE INJ 10MG/2ML VIAL (J2765) IV (01:00)
[2018-01-02] MEDS ORDERED: METOCLOPRAMIDE 10 MG TAB As Ordered (01:21)
[2018-01-02] MEDS: METOCLOPRAMIDE 5 MG TAB PO (01:24)
== END 2018-01-02 01:30 | disposition home or self-care (01) ==
LOC: M ED 23:19
DX: R10.9 Unspecified abdominal pain (principal); K31.84 Gastroparesis
CPT/HCPCS: 74021

== ENCOUNTER 2018-03-31 16:37 | Emergency (ER) | payer OTHER ==
[2018-03-31] MEDS: NS 1,000 ML IV (18:19)
[2018-03-31 18:28] LABS: BASO # 0.1 10^3/uL (0.0-0.2); BASO % 0.5 % (0.0-1.0); EOS # 0.1 10^3/uL (0.0-0.50); EOS % 1.1 % (0.0-3.0); HEMATOCRIT 41.4 % (42.0-52.0); HEMOGLOBIN 13.9 g/dl (13.5-17.5); IMMATURE GRANULOCYTE % 0.2 % (0-3.0); LYMPH # 3.2 10^3/uL (1.5-6.5); LYMPH % 33.6 % (24.0-44.0); MEAN CORPUSCULAR HEMOGLOBIN 27.8 pg (27.0-33.0); MEAN CORPUSCULAR HGB CONC 33.6 g/dl (32.0-36.5); MEAN CORPUSCULAR VOLUME 82.8 fl (80.0-96.0); MONO # 0.6 10^3/uL (0.0-0.8); MONO % 6.5 % (0.0-5.0); NEUTROPHILS # 5.6 10^3/uL (1.8-7.7); NEUTROPHILS % 58.1 % (36.0-66.0); PLATELET COUNT, AUTOMATED 300 10^3/uL (150-450); RED CELL DISTRIBUTION WIDTH 13.1 % (11.5-14.5); WHITE BLOOD COUNT 9.7 10^3/uL (4.0-10.0)
[2018-03-31 18:43] LABS: INR 0.99; PROTHROMBIN TIME 13.2 SECONDS (12.1-14.4)
[2018-03-31 18:44] LABS: PARTIAL THROMBOPLASTIN TIME 29.2 SECONDS (25.4-37.6)
[2018-03-31 18:50] LABS: ALBUMIN 3.8 GM/DL (3.2-5.2); ALBUMIN/GLOBULIN RATIO 0.95 (1.00-1.93); ALKALINE PHOSPHATASE 85 U/L (45-117); ALT/SGPT 39 U/L (12-78); ANION GAP 7 MEQ/L (8-16); AST/SGOT 22 U/L (7-37); BILIRUBIN,DIRECT < 0.1 MG/DL (0.0-0.2); BILIRUBIN,TOTAL 0.3 MG/DL (0.2-1.0); BLOOD UREA NITROGEN 13 MG/DL (7-18); CALCIUM LEVEL 8.8 MG/DL (8.5-10.1); CARBON DIOXIDE LEVEL 30 MEQ/L (21-32); CHLORIDE LEVEL 105 MEQ/L (98-107); CPK CREATINE PHOSPHOKINASE 251 U/L (39-308); CREATININE FOR GFR 1.25 MG/DL (0.70-1.30); FREE T4 0.77 NG/DL (0.76-1.46); GLOMERULAR FILTRATION RATE > 60.0 (>60); GLUCOSE, FASTING 91 MG/DL (70-100); LIPASE 145 U/L (73-393); POTASSIUM SERUM 4.2 MEQ/L (3.5-5.1); SODIUM LEVEL 142 MEQ/L (136-145); TOTAL PROTEIN 7.8 GM/DL (6.4-8.2); TROPONIN I < 0.02 NG/ML (< 0.10)
[2018-03-31 18:56] LABS: CK-MB VALUE MASS 1.1 NG/ML (<3.6); MB/CK RELATIVE INDEX 0.43 (< OR =4)
[2018-03-31] MEDS ORDERED: ISOVUE-370 76% 100ML VIAL (Q9967) As Ordered (19:01)
== END 2018-03-31 20:31 | disposition home or self-care (01) ==
LOC: M ED 16:37
DX: R07.89 Other chest pain (principal); R06.02 Shortness of breath; K21.9 Gastro-esophageal reflux disease without esophagitis; Z86.711 Personal history of pulmonary embolism
CPT/HCPCS: Q9967

== ENCOUNTER 2019-05-20 22:26 | Emergency (ER) | payer OTHER ==
[~2019-05-20] VITALS: Ht 170.2 cm; Wt 90.9 kg
[~2019-05-20 22:26] MED LIST changes: +AUGM875T28 PO; +INDO-16 PO; -INDO25CA PO; +NAPR-837 PO; -NAPR500T PO; -NORC1TAB4 PO; +NORC1TAB7 PO; -PEPC1TAB4 PO; +PEPC1TAB5 PO; +PROAAER10 INH; +REGL5TAB2 PO; +ZITHTAB PO
[2019-05-20] MEDS ORDERED: NS 1,000 ML IV ONE (23:00)
[2019-05-20 23:16] LABS: BASO # 0.1 10^3/uL (0.0-0.2); BASO % 0.4 % (0.0-1.0); EOS # 0.1 10^3/uL (0.0-0.5); EOS % 0.3 % (0.0-3.0); HEMATOCRIT 45.6 % (42.0-52.0); HEMOGLOBIN 15.3 g/dl (13.5-17.5); LYMPH # 4.4 10^3/uL (1.5-5.0); LYMPH % 30.2 % (24.0-44.0); MEAN CORPUSCULAR HGB CONC 33.6 g/dl (32.0-36.5); MEAN CORPUSCULAR VOLUME 83.4 fl (80.0-96.0); MONO % 6.8 % (0.0-5.0); NEUTROPHILS # 9.1 10^3/uL (1.5-8.5); PLATELET COUNT, AUTOMATED 324 10^3/uL (150-450); RED BLOOD COUNT 5.47 10^6/uL (4.30-6.10); WHITE BLOOD COUNT 14.7 10^3/uL (4.0-10.0)
--- NOTE | 2019-05-20 23:40 | REPVR ---
EXAM: CT Head Without Contrast EXAM DATE/TIME: 05/20/2019 10:39 PM CLINICAL HISTORY: 28 years old, male; Injury or trauma; Fall; Initial encounter; Concussion / head injury; Additional info: Loc and hit head TECHNIQUE: Imaging protocol: Computed tomography of the head without contrast. Radiation optimization: All CT scans at this facility use at least one of these dose optimization techniques: automated exposure control; mA and/or kV adjustment per patient size (includes targeted exams where dose is matched to clinical indication); or iterative reconstruction. COMPARISON: No relevant prior studies available. FINDINGS: Brain: No intracranial mass, mass effect or midline shift. No acute intracranial hemorrhage. No CT evidence of acute cortical infarct. Ventricles: Ventricles, cisterns, and sulci are normal in size for age. Bones/joints: No calvarial fracture or destructive process. Sinuses: Imaged paranasal sinuses are clear. Mastoid air cells: Mastoid air cells are normally aerated. Orbits: Imaged orbits are unremarkable. Soft tissues: No focal extracranial soft tissue swelling. IMPRESSION: No acute or concerning focal intracranial abnormality. Electronically signed by: Greg Fiore On 05/20/2019 23:40:13 PM
--- NOTE | 2019-05-20 23:41 | REPVR ---
EXAM: CT Cervical Spine Without Contrast EXAM DATE/TIME: 05/20/2019 10:39 PM CLINICAL HISTORY: 28 years old, male; Injury or trauma; Fall; Initial encounter; Concussion /head injury; Additional info: Loc and hit head TECHNIQUE: Imaging protocol: Computed tomography images of the cervical spine without contrast. Radiation optimization: All CT scans at this facility use at least one of these dose optimization techniques: automated exposure control; mA and/or kV adjustment per patient size (includes targeted exams where dose is matched to clinical indication); or iterative reconstruction. COMPARISON: No relevant prior studies available. FINDINGS: Vertebrae: No segmental vertebral malalignment. Vertebral body height is maintained at all levels. No acute fracture. No destructive or blastic cervical spine osseous lesion. Discs/Spinal canal/Neural foramina: Intervertebral disc spaces are appropriate for age. Soft tissues: Soft tissues show no concerning abnormality or asymmetry. Lungs: Imaged lung apices demonstrate no concerning abnormality. Pleural space: No apical pneumothorax. IMPRESSION: No acute fracture or traumatic segmental cervical malalignment. Electronically signed by: Greg Fiore On 05/20/2019 23:40:59 PM
[2019-05-21 00:06] LABS: ALT/SGPT 48 U/L (12-78); BILIRUBIN,DIRECT 0.1 MG/DL (0.0-0.2); BILIRUBIN,TOTAL 0.5 MG/DL (0.2-1.0); BLOOD UREA NITROGEN 12 MG/DL (7-18); CALCIUM LEVEL 9.7 MG/DL (8.5-10.1); CARBON DIOXIDE LEVEL 26 MEQ/L (21-32); CHLORIDE LEVEL 103 MEQ/L (98-107); CK-MB VALUE MASS < 1.0 NG/ML (<3.6); CPK CREATINE PHOSPHOKINASE 1890 U/L (39-308); CREATININE FOR GFR 1.19 MG/DL (0.70-1.30); GLOMERULAR FILTRATION RATE > 60.0 (>60); GLUCOSE, FASTING 96 MG/DL (70-100); MB/CK RELATIVE INDEX 0.05 (< OR =4); POTASSIUM SERUM 4.3 MEQ/L (3.5-5.1); SODIUM LEVEL 137 MEQ/L (136-145); TOTAL PROTEIN 8.1 GM/DL (6.4-8.2); TROPONIN I < 0.02 NG/ML (< 0.10)
[2019-05-21] MEDS ORDERED: ISOVUE-370 76% 100ML VIAL (Q9967) As Ordered ONE (00:35)
[2019-05-21 01:32] LABS: AMPHETAMINES LEVEL URINE NEGATIVE (NEGATIVE); BARBITURATES URINE NEGATIVE (NEGATIVE); BENZODIAZEPINES URINE NEGATIVE (NEGATIVE); CANNABINOIDS URINE NEGATIVE (NEGATIVE); COCAINE METABOLITE URINE NEGATIVE (NEGATIVE); METHADONE URINE NEGATIVE (NEGATIVE); OPIATES URINE NEGATIVE (NEGATIVE); PHENCYCLIDINE URINE NEGATIVE (NEGATIVE)
--- NOTE | 2019-05-21 01:45 | REPVR ---
EXAM: CT Angiography Chest With Contrast EXAM DATE/TIME: 05/21/2019 12:30 AM CLINICAL HISTORY: 28 years old, male; Chest pain; Type not specified; Additional info: Cp TECHNIQUE: Imaging protocol: Computed tomographic angiography of the chest with intravenous contrast. 3D rendering: MIP reconstructed images were created and reviewed. Radiation optimization: All CT scans at this facility use at least one of these dose optimization techniques: automated exposure control; mA and/or kV adjustment per patient size (includes targeted exams where dose is matched to clinical indication); or iterative reconstruction. Contrast material: ISO; Contrast volume: 75 ml; Contrast route: FOREARM; COMPARISON: CT ANGIO CHEST 03/31/2018 7:04 PM FINDINGS: Pulmonary arteries: No focal pulmonary artery filling defect to suggest acute pulmonary embolus. . Aorta: Thoracic aorta shows no evidence of acute traumatic injury or dissection. Lungs: No evidence of lung contusion, aspiration or concerning lung mass. No central endobronchial lesion. Pulmonary vascular/interstitial pattern does not suggest active pulmonary edema. Pleural space: No hemothorax or pneumothorax. Heart: No overt cardiac enlargement or pericardial effusion. Mediastinum: No mediastinal hematoma. Residual thymic tissue is present in the anterior mediastinum. Lymph nodes: No enlarged lymph nodes. Bones/joints: No acute displaced fractures involving ribs, thoracic spine or shoulder girdle. Soft tissues: No asymmetric abnormality of the extrathoracic soft tissues. IMPRESSION: 1. No CT evidence of acute thoracic trauma. 2. No evidence of acute pulmonary embolus or aortic dissection. 3. No other acute or concerning focal intrathoracic abnormality. Electronically signed by: Greg Fiore On 05/21/2019 01:45:07 AM
[2019-05-21 02:44] VITALS: BP 122/76
--- NOTE | 2019-05-21 08:23 | ECGEPIP ---
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
== END 2019-05-21 03:16 | disposition home or self-care (01) ==
LOC: M ED 22:27
DX: R55 Syncope and collapse (principal); R07.89 Other chest pain
CPT/HCPCS: 70450; 71275; 72125; 80048; 80076; 80307; 82550; 82553; 84443; 84484; 85025; 93005; 96360; 96361; 99284; Q9967

== ENCOUNTER → 2021-08-17 | Outpatient (REF) | payer OTHER ==
[2021-08-17 21:08] LABS: GC DNA AMPLIFICATION POSITIVE (NEGATIVE)
== END ==
LOC: M WUC 19:09
PROVIDERS: ATTEND Physician Assistant Medical
DX: R30.0 Dysuria (principal)

== ENCOUNTER 2025-01-20 13:48 | Emergency (ER) | payer OTHER ==
[~2025-01-20] VITALS: Ht 172.7 cm; Wt 90.9 kg
[2025-01-20 15:12] LABS: BASO % 0.2 % (0.0-1.0); HEMATOCRIT 45.7 % (42.0-52.0); HEMOGLOBIN 14.9 g/dl (13.5-17.5); LYMPH % 10.5 % (24.0-44.0); MEAN CORPUSCULAR HEMOGLOBIN 27.4 pg (27.0-33.0); MEAN CORPUSCULAR HGB CONC 32.6 g/dl (32.0-36.5); MEAN CORPUSCULAR VOLUME 84.2 fl (80.0-96.0); MONO # 0.4 10^3/uL (0.0-0.8); MONO % 4.3 % (2.0-8.0); NEUTROPHILS # 8.4 10^3/uL (1.5-8.5); NEUTROPHILS % 84.8 % (36.0-66.0); PLATELET COUNT, AUTOMATED 224 10^3/uL (150-450); RED BLOOD COUNT 5.43 10^6/uL (4.30-6.10); WHITE BLOOD COUNT 9.8 10^3/uL (4.0-10.0)
[2025-01-20 15:16] LABS: CPK CREATINE PHOSPHOKINASE 355 U/L (46-171)
[2025-01-20 15:17] LABS: BLOOD UREA NITROGEN 19 MG/DL (9-23); CALCIUM LEVEL 8.5 MG/DL (8.5-10.1); CARBON DIOXIDE LEVEL 25 MMOL/L (20-31); CHLORIDE LEVEL 106 MMOL/L (98-107); CK-MB VALUE MASS < 1.0 NG/ML (<3.6); CREATININE FOR GFR 1.24 MG/DL (0.70-1.30); GLOMERULAR FILTRATION RATE 77.8 (>60); GLUCOSE, FASTING 142 MG/DL (60-100); MB/CK RELATIVE INDEX 0.28 (< OR =4); POTASSIUM SERUM 3.6 MMOL/L (3.5-5.1); SODIUM LEVEL 143 MMOL/L (136-145)
[2025-01-20 15:22] LABS: THYROID STIMULATING HORMONE 0.886 uIU/ML (0.55-4.78)
[2025-01-20] MEDS: NS (Normal Saline) 0.9% 1,000 ML IV ONE (15:54)
[2025-01-20] MEDS ORDERED: ISOVUE-370 76% 100ML VIAL As Ordered ONE (18:07)
[2025-01-20 18:40] VITALS: BP 147/82; TEMP 98.1; O2SAT 99
== END 2025-01-20 18:42 | disposition home or self-care (01) ==
LOC: M ED 13:48
DX: R55 Syncope and collapse (principal)
CPT/HCPCS: 70450; 71275; 72125; 80048; 82550; 82553; 84443; 84484; 85025; 85379; 93005; 93041; 94760; 96360; 99284; Q9967